=== PATIENT | female | born 1965 | race African-American/Black ===

== ENCOUNTER → 2020-07-07 | Outpatient (CLI) | payer OTHER ==
--- NOTE | 2020-07-07 13:20 | RAD ---
XR KNEE_RT 1-2 VIEWS History: Reason: RIGHT KNEE PAIN, DISABILITY DETERMINATION / Spl. Instructions: / History: Comparison: None. Technique: AP and lateral views of the right knee. Findings: There is no evidence for fracture. Alignment is normal. No destructive osseous lesions are seen. Joint spaces are preserved. Soft tissues are normal. Impression: 1. Unremarkable right knee. Electronically signed by: Viraj Reese MD (07/07/2020 1:18 PM) [facility]
== END ==
LOC: RAD 08:46
PROVIDERS: ATTEND Family Medicine
DX: Z02.71 Encounter for disability determination (principal); M25.561 Pain in right knee
CPT/HCPCS: 73560